=== PATIENT | female | born 1955 | race Caucasian/White ===

== ENCOUNTER → 2017-01-10 | Outpatient (CLI) | payer BC ==
[~2017-01-10] MED LIST: HORMONE REPLACEMENT PO; MOBIC15 MG PO; NAPROSYN500 MG PO; NAPROXEN SODIU220 M2 PO; NORCO 5-325 TA1 EACH PO; ONDANSETRON HCL4 M2 PO
== END ==
LOC: RAD 10:07
DX: Z12.31 Encounter for screening mammogram for malignant neoplasm of breast (principal)

== ENCOUNTER → 2018-03-31 | Outpatient (CLI) | payer BC | LOC: NUC 03-26 12:13 | DX: E28.39 Other primary ovarian failure (principal); I10 Essential (primary) hypertension; Z78.0 Asymptomatic menopausal state ==

== ENCOUNTER → 2019-03-18 | Outpatient (CLI) | payer OTHER | LOC: RAD 09:45 | DX: Z12.31 Encounter for screening mammogram for malignant neoplasm of breast (principal) ==

== ENCOUNTER → 2020-05-16 | Outpatient (CLI) | payer OTHER | LOC: RAD 10:07 | PROVIDERS: ATTEND Obstetrics & Gynecology | DX: Z12.31 Encounter for screening mammogram for malignant neoplasm of breast (principal) ==